=== PATIENT | male | born 1990 | race African-American/Black ===

== ENCOUNTER 2020-03-06 18:53 | Emergency (ER) | payer OTHER, MEDICAID ==
[~2020-03-06] VITALS: Ht 175.3 cm; Wt 88.5 kg
[2020-03-06 19:44] LABS: Basophils # (auto) 0 10 ^3/uL (0-0.2); Eosinophils # (auto) 0.1 10 ^3/uL (0-0.8); Eosinophils % (auto) 0.7 % (0.0-7.0); White Blood Cell 18.9 10^3/uL (4.4-10.8)
[2020-03-06 19:45] LABS: Basophils % (auto) 0.2 % (0.0-2.0); Hematocrit 47.3 % (41.0-53.0); Hemoglobin 16.4 g/dL (13.5-17.5); Lymphocytes # (auto) 1.7 10 ^3/uL (0.4-5.4); Lymphocytes % (auto) 8.9 % (10.0-50.0); Mean Corpuscular Hemoglobin 35.7 pg (28.0-32.0); Mean Corpuscular Hgb Conc. 34.7 g/dL (32.0-36.0); Mean Corpuscular Volume 102.9 fL (80.0-100.0); Monocytes # (auto) 1.3 10 ^3/uL (0-1.3); Monocytes % (auto) 6.8 % (0.0-12.0); Neutrophils # (auto) 15.7 10 ^3/uL (1.6-8.6); Neutrophils % (auto) 83.4 % (37.0-80.0); Red Cell Distribution Width 14.9 % (11.8-14.3)
[2020-03-06 20:02] LABS: Albumin 4.4 g/dL (3.4-5.0); BUN/Creatinine Ratio 10.9; Calcium 8.6 mg/dL (8.5-10.1); Potassium 3.6 mmol/L (3.5-5.1)
[2020-03-06 20:05] LABS: Bilirubin, Total 0.6 mg/dL (0.2-1.0); Total Protein 8.4 g/dL (6.4-8.2)
[2020-03-06 20:36] LABS: INR 0.96 (0.9-1.15)
[2020-03-06] MEDS ORDERED: HYDROmorphone HCL 2 MG/ML VL IV ONE (21:45)
[2020-03-07 00:45] VITALS: BP 162/115
[2020-03-07] MEDS ORDERED: HYDROmorphone HCL 2 MG/ML VL IV ONE (00:45)
== END 2020-03-07 01:14 | disposition short-term general hospital (02) ==
LOC: ER 18:55
DX: S83.194A Other dislocation of right knee, initial encounter (principal); S22.029A Unspecified fracture of second thoracic vertebra, initial encounter for closed fracture; S22.039A Unspecified fracture of third thoracic vertebra, initial encounter for closed fracture; S22.049A Unspecified fracture of fourth thoracic vertebra, initial encounter for closed fracture; V49.69XA Unspecified car occupant injured in collision with other motor vehicles in traffic accident, initial encounter; M79.642 Pain in left hand; R51.9 Headache, unspecified; Y93.89 Activity, other specified; Y92.488 Other paved roadways as the place of occurrence of the external cause; Y99.8 Other external cause status
CPT/HCPCS: 36415; 70450; 72125; 72170; 73120; 73552; 80053; 85025; 85610; 85730; 96374; 96376; 99285; J1170